=== PATIENT | male | born 1980 | race Caucasian/White ===

== ENCOUNTER 2016-09-09 02:52 | Emergency (ER) | payer SELFPAY ==
[2016-09-09 03:16] VITALS: BP 146/74
[2016-09-09] MEDS ORDERED: NYSTATIN 500000 UNIT/5 ML UDCUP PO ONE (04:04)
--- NOTE | 2016-09-09 04:10 | ER Document Report ---
ED General - General Chief Complaint: Mouth Problem Stated Complaint: SWOLLEN THROAT,BLACK TONGUE FOR 2 MONTHS Notes: Patient is a 35-year-old male presents with complaints of noticing some coating base of his tongue. He still has been there for several months. He does smoke. He does not have teeth. He says that since having seat removed he's had increased postnasal drip. He has been seen her several times in the past due to tonsillar stones. He says that currently he does not have any large tonsillar stones but that they are intermittent. He says his recent start on Minipress did not nurse. Since starting it he's felt like his throat felt a little swollen. He is told by his doctors stop this medication. He stopped yesterday. Currently does not feel as if his throat is very swollen. He said no fevers. No difficulty breathing. He also asks me to look at a rash that he' s had in his pelvic region for 13 years. He's been told in the past it could be yeast related. He does shave his pubic hair. TRAVEL OUTSIDE OF THE [place] IN LAST 30 DAYS: No - Related Data Allergies/Adverse Reactions: Penicillins Allergy (Verified 09/09/16 03:07) turkey Allergy (Verified 09/09/16 03:07) Home Medications: Current Home Medications Lurasidone HCl [Latuda] 1 tab PO DAILY 09/09/16 [History] Prazosin HCl [Prazosin HCl] 1 tab PO DAILY 09/09/16 [History] Past Medical History - Social History Smoking Status: Current Every Day Smoker Cigarette use (# per day): Yes - 20 Chew tobacco use (# tins/day): No Frequency of alcohol use: Rare Drug Abuse: None Family History: Reviewed & Not Pertinent Renal/ Medical History: Denies: Hx Peritoneal Dialysis Past Surgical History: Reports: Hx Oral Surgery - Immunizations Hx Diphtheria, Pertussis, Tetanus Vaccination: Yes Review of Systems - Review of Systems Notes: My Normal Review Basic REVIEW OF SYSTEMS: CONSTITUTIONAL : Denies fever, chills, or sweats. Denies recent illness. EENT: Coating on tongue. RESPIRATORY: Denies cough, cold, or chest congestion. Denies shortness of breath, difficulty breathing, or wheezing. GASTROINTESTINAL: Denies abdominal pain. Denies nausea, vomiting, or diarrhea. Denies constipation. Last BM: GENITOURINARY: Denies difficulty urinating, painful urination, burning, frequency, or blood in urine.: MUSCULOSKELETAL: Denies neck or back pain or joint pain or swelling. SKIN: Rash and pelvic area. NEUROLOGICAL: Denies altered mental status or loss of consciousness. Denies headache. Denies weakness or paralysis or loss of use of either side. Denies problems with gait or speech. Denies sensory or motor loss. ALL OTHER SYSTEMS REVIEWED AND NEGATIVE. Physical Exam - Vital signs Vitals: Temp Pulse Resp BP Pulse Ox 97.9 F 82 18 146/74 H 96 09/09/16 03:13 09/09/16 03:13 09/09/16 03:13 09/09/16 03:13 09/09/16 03:13 - Notes Notes: General Appearance: Well nourished, alert, cooperative, no acute distress, no obvious discomfort. Well-appearing. Vitals: reviewed, See vital signs table. Head: no swelling or tenderness to the head Eyes: PERRL, EOMI, Conjuctiva clear Mouth: No decreasd moisture. Patient does have some thick coating on the posterior aspect of his tongue. It is brownish in color. It is not black appearing. There is no associated bleeding. No plaques or ulcers. No associated redness or swelling. Throat: No tonsillar inflammation, No airway obstruction, No lymphadenopathy Genital: Patient has several scheduled areas of inflamed hair follicles in the pelvic region consistent with folliculitis. He does shave his pubic hair and has some obvious irritation from that. This no signs of infection. No abnormal drainage. No fluctuance. Skin: warm, dry, appropriate color, no rash Neuro: speech clear, oriented x 3, normal affect, responds appropriately to questions. Course - Vital Signs Vital signs: Temp Pulse Resp BP Pulse Ox 97.9 F 82 18 146/74 H 96 09/09/16 03:32 09/09/16 03:32 09/09/16 03:32 09/09/16 03:32 09/09/16 03:32 - Transfer of Care Notes: 09/09/16 04:18 Exact cause of the cutting back the patient's tongue is not 100% clear. Looks consistent with that of typical coatings seems someone who smokes or your basis. Episode drip and mucus can also be protruding through it. The remainder of his tongue is clear. His tonsils are not inflamed. He has a chronic smoker and has had multiple pharyngeal symptoms problems over last year. I once again strongly informed him to follow-up with your nose and throat clinic so that they can take a close look at him to make sure that there is nothing concerning for cancer that would need to be biopsied. I currently do not see anything concerning; however, informed him I'm not expert in this area and that is why he needs to be seen by the ENT physician. Patient otherwise clinically looks very well. I did strongly encourage him to quit smoking. We'll give him a trial of nystatin to see if this helps improve the coating on this time at all. I informed him that it does not look classic for a fungal infection; however, we would try this to see if it does help. Patient Nicholas return to ER if he has swelling of the throat or mouth, fevers, or feels the symptoms are worsening. Patient agrees with plan will be discharged home. Dictation of this chart was performed using voice recognition software; therefore, there may be some unintended grammatical errors. Discharge - Discharge Clinical Impression: Tongue coating, Folliculitis Condition: Good Disposition: HOME, SELF-CARE Additional Instructions: It is very important you stop smoking. Is also very important you follow up with your nose and throat clinic for evaluation of your pharynx and tongue. With a history of smoking it is important that they are able to evaluate you and possibly biopsy if they finding anything concerning for cancer. Please return to ER if you have fevers, worsening of her symptoms, difficulty breathing or swallowing, or have further concerns. Prescriptions: Nystatin [Mycostatin 500,000 Unit/5 ml Susp Udcup] 500,000 unit PO TID #100 udc Forms: Return to Work Referrals: MAGALIS BRITO MD [DEBI COATES] - Follow up in 3-5 days
== END 2016-09-09 04:13 | disposition home or self-care (01) ==
LOC: ER 02:52
DX: K14.9 Disease of tongue, unspecified (principal); L73.9 Follicular disorder, unspecified; K08.89 Other specified disorders of teeth and supporting structures; F17.210 Nicotine dependence, cigarettes, uncomplicated; Z79.899 Other long term (current) drug therapy
CPT/HCPCS: 99282

== ENCOUNTER 2017-01-10 16:42 | Emergency (ER) | payer OTHER ==
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
--- NOTE | 2017-01-10 19:37 | RADIOLOGY REPORT (SQ) ---
EXAM DESCRIPTION: CHEST PA/LAT COMPLETED DATE/TIME: 01/10/2017 7:23 pm REASON FOR STUDY: hurts to breath, shortness of breath COMPARISON: 04/25/2016 EXAM PARAMETERS: NUMBER OF VIEWS: two views TECHNIQUE: Digital Frontal and Lateral radiographic views of the chest acquired. RADIATION DOSE: NA LIMITATIONS: none FINDINGS: LUNGS AND PLEURA: No acute opacities, masses or pneumothorax. No pleural effusion. MEDIASTINUM AND HILAR STRUCTURES: No masses or contour abnormalities. HEART AND VASCULAR STRUCTURES: Heart normal size. No evidence for failure. BONES: No acute findings. HARDWARE: None in the chest. OTHER: No other significant finding. IMPRESSION: No acute findings. TECHNICAL DOCUMENTATION: JOB ID: [id number] [employer]- All Rights Reserved
[2017-01-10 20:32] VITALS: BP 131/89
== END 2017-01-10 20:30 | disposition home or self-care (01) ==
LOC: ER 16:42
DX: S16.1XXA Strain of muscle, fascia and tendon at neck level, initial encounter (principal); S39.012A Strain of muscle, fascia and tendon of lower back, initial encounter; R07.89 Other chest pain; V89.2XXA Person injured in unspecified motor-vehicle accident, traffic, initial encounter; Z88.0 Allergy status to penicillin
CPT/HCPCS: 71020; 99283

== ENCOUNTER 2017-03-06 22:16 | Emergency (ER) | payer OTHER ==
[2017-03-06] MEDS ORDERED: KETOROLAC TROMETHAMINE INJ/PF 30 MG/1 ML SDV IV ONE (23:39)
--- NOTE | 2017-03-06 23:41 | ER Document Report ---
ED General - General Chief Complaint: Abdominal Pain Stated Complaint: ABDOMINAL PAIN Time Seen by Provider: 03/06/17 23:31 Notes: Patient is a 36-year-old male presents with complaint of pain over his right lower ribs and right side of his abdomen that radiates into his testicles. He says that she had pain off and on in his left testicle for about a month. Says pain is worse when he ejaculates. Patient says the pain in his right ribs and right side is new today. He said it started just a few hours before he came to the ER. No dysuria. No blood in his urine. No fevers. Some nausea. No vomiting. No diarrhea. He has never had this pain before. No history of abdominal surgeries. No history of kidney stones. TRAVEL OUTSIDE OF THE [place] IN LAST 30 DAYS: No - Related Data Allergies/Adverse Reactions: Penicillins Allergy (Verified 09/09/16 03:07) turkey Allergy (Verified 09/09/16 03:07) Past Medical History - Social History Smoking Status: Current Every Day Smoker Chew tobacco use (# tins/day): No Frequency of alcohol use: None Drug Abuse: None Family History: Reviewed & Not Pertinent Pulmonary Medical History: Reports: Hx Asthma - childhood Renal/ Medical History: Denies: Hx Peritoneal Dialysis Past Surgical History: Reports: Hx Oral Surgery - Immunizations Hx Diphtheria, Pertussis, Tetanus Vaccination: Yes Review of Systems - Review of Systems Notes: My Normal Review Basic REVIEW OF SYSTEMS: CONSTITUTIONAL : Denies fever, chills, or sweats. Denies recent illness. EENT: Denies eye, ear, throat, or mouth pain or symptoms. Denies nasal or sinus congestion. RESPIRATORY: Denies cough, cold, or chest congestion. Denies shortness of breath, difficulty breathing, or wheezing. GASTROINTESTINAL: Right-sided abdominal pain. Denies nausea, vomiting, or diarrhea. Denies constipation. Last BM: GENITOURINARY: Denies difficulty urinating, painful urination, burning, frequency, or blood in urine. MUSCULOSKELETAL: Right Back pain SKIN: Denies rash or skin lesions. NEUROLOGICAL: Denies altered mental status or loss of consciousness. Denies headache. Denies weakness or paralysis or loss of use of either side. Denies problems with gait or speech. Denies sensory or motor loss. ALL OTHER SYSTEMS REVIEWED AND NEGATIVE. Physical Exam - Vital signs Vitals: Temp Pulse Resp BP Pulse Ox 98.2 F 80 22 H 133/86 H 94 03/06/17 22:58 03/06/17 22:58 03/06/17 22:58 03/06/17 22:58 03/06/17 22:58 - Notes Notes: General Appearance: Well nourished, alert, cooperative, no acute distress, mild obvious discomfort. well-appearing Vitals: reviewed, See vital signs table. Head: no swelling or tenderness to the head Eyes: PERRL, EOMI, Conjuctiva clear Mouth: No decreasd moisture Throat: No tonsillar inflammation, No airway obstruction, No lymphadenopathy Lungs: No wheezing, No rales, No rhonci, No accessory muscle use, good air exchange bilaterally. Heart: Normal rate, Regular rythm, No murmur, no rub Abdomen: Normal BS, soft, No rigidity, mild right-sided abdominal tenderness in the right upper quadrant and right lower quadrant. Mild pain in the suprapubic region. Minimal pain on left side of the abdomen. Abdominal tenderness, No guarding, no rebound, no abdominal masses, Genital. No significant pain to palpation of the testicles. No redness or swelling. Extremities: strength 5/5 in all extremities, good pulses in all extremities, no swelling or tenderness in the extremities, no edema. Skin: warm, dry, appropriate color, no rash Neuro: speech clear, oriented x 3, normal affect, responds appropriately to questions. Course - Re-evaluation Re-evalutation: 03/07/17 06:13 Patient has a kidney stone. Patient will be discharged home. His pain is well- controlled with Toradol. Patient has no fevers. He has no signs of infection. He looks well. I encouraged him to follow-up with urologist. I encouraged him return to ER if he has fevers, vomiting, or intractable pain. Patient agrees with plan and will be discharged home. Dictation of this chart was performed using voice recognition software; therefore, there may be some unintended grammatical errors. - Vital Signs Vital signs: Temp Pulse Resp BP Pulse Ox 97.7 F 72 16 132/91 H 97 03/07/17 03:41 03/07/17 03:41 03/07/17 03:41 03/07/17 03:41 03/07/17 03:41 - Laboratory Result Diagrams: 03/06/17 23:31 03/06/17 23:31 Laboratory results interpreted by me: 03/06/17 03/06/17 03/06/17 23:20 23:31 23:31 WBC 10.8 H Seg Neutrophils % 85.2 H Lymphocytes % 9.0 L Absolute Neutrophils 9.2 H Glucose 125 H ALT 78 H Urine Protein 30 H Urine Blood LARGE H Discharge - Discharge Clinical Impression: Kidney stone on right side Condition: Good Disposition: HOME, SELF-CARE Additional Instructions: KIDNEY STONE: You are passing or have passed a kidney stone. These stones are usually due to increased calcium or uric acid concentrations in your urine. Stones within the kidney itself are not painful. The pain occurs as the stone leaves the kidney to pass down the long tube, called the ureter, leading to the bladder. If the stone is small, it will usually pass by itself. Most patients can pass the stone at home. You will usually receive medications for pain, nausea or vomiting, and sometimes a medication to assist in passing the kidney stone. However, if the pain is very severe or if vomiting prevents you from taking oral pain medications, you may need to return for further treatment. Drink three or four quarts of fluids per day. You will be given pain medication (if needed) and urine strainers. Strain all your urine to see if the stone passes. If your doctor has asked you to bring the stone in for analysis, return with the stone once it has passed. Return if pain or vomiting become severe, if you develop a high fever, if you are unable to pass your urine, or if other unusual symptoms occur. TORADOL INJECTION: You have been given an injection of ketorolac tromethamine (Toradol). This is an excellent, safe drug for pain control. It also has potent antiinflammatory action. You should have significant pain relief within about one hour. Toradol is not addicting and is non-sedating. It does not interfere with driving or work. Call or return if you develop itching, hives, shortness of breath, or rash. ANTINAUSEA MEDICATION: You have been given a medication to suppress nausea and vomiting. This type of medication can be given as a shot, pill, or suppository. It will usually last for many hours. Pills and shots usually last six to eight hours, suppositories last about 12 hours. For the typical illness, only one or two doses of the medication may be necessary. Mild lightheadedness may occur. This type of medicine can cause drowsiness. Do not drive or operate dangerous machinery while under its influence. Do not mix with alcohol. See your doctor at once if you have muscle spasms or tightness, or uncontrollable motions (particularly of the neck, mouth, or jaw). Persistent vomiting or severe lightheadedness should also be evaluated by the physician. FOLLOW-UP CARE: If you have been referred to a physician for follow-up care, call the physician s office for an appointment as you were instructed or within the next two days. If you experience worsening or a significant change in your symptoms, notify the physician immediately or return to the Emergency Department at any time for re-evaluation. Please return to the ER immediately if you develop intractable vomiting, fevers , intractable pain, or feel unwell. Please call the urology office this am to make a follow up appointment. Prescriptions: Ketorolac Tromethamine [Toradol 10 mg Tablet] 10 mg PO Q6HP PRN #14 tablet PRN Reason: flank pain Ondansetron [Zofran Odt 4 mg Tablet] 1 tab PO Q4H PRN #15 tab.rapdis PRN Reason: For Nausea/Vomiting Referrals: CHARO PEREZ MD [NO LOCAL MD] - Follow up in 3-5 days [facility] [Provider Group] - Follow up in 3-5 days
[2017-03-06 23:44] LABS: APPEARANCE,URINE SLIGHTLY-CLOUDY; BILIRUBIN,URINE NEGATIVE (NEGATIVE); GLUCOSE, URINE NEGATIVE (NEGATIVE); KETONES,URINE NEGATIVE (NEGATIVE); LEUKOCYTE ESTERASE,URINE NEGATIVE (NEGATIVE); NITRITE,URINE NEGATIVE (NEGATIVE); PROTEIN,URINE 30 mg/dL (NEGATIVE); URINE SPECIFIC GRAVITY 1.028; UROBILINOGEN,URINE NEGATIVE mg/dL (<2.0)
[2017-03-06 23:56] LABS: ABSOLUTE EOSINOPHILS # (AUTO) 0.1 10^3/uL (0.0-0.6); ABSOLUTE MONOCYTES (AUTO) 0.5 10^3/uL (0.1-1.4); ABSOLUTE NEUT (AUTO) 9.2 10^3/uL (1.7-8.2); BASOPHILS % (AUTO) 0.2 % (0-2); EOSINOPHILS % (AUTO) 0.6 % (0-6); HEMATOCRIT 44.6 % (37.9-51.0); HGB HCT DIFFERENCE 3.4; MEAN CORPUSCULAR HEMOGLOBIN 30.5 pg (27.0-33.4); MEAN CORPUSCULAR VOLUME 85 fl (80-97); RED BLOOD COUNT 5.25 10^6/uL (4.35-5.55); RED CELL DISTRIBUTION WIDTH 12.8 % (11.5-14.0); SEGMENTED NEUTROPHILS % (AUTO) 85.2 % (42-78); WHITE BLOOD COUNT 10.8 10^3/uL (4.0-10.5)
[2017-03-07 00:01] LABS: ALANINE AMINOTRANSFERASE 78 U/L (21-72); ALBUMIN 4.5 g/dL (3.5-5.0); ALKALINE PHOSPHATASE 91 U/L (38-126); ANION GAP 13 (5-19); ASPARTATE AMINO TRANSFERASE 42 U/L (17-59); BILIRUBIN,DIRECT 0.4 mg/dL (0.0-0.4); BILIRUBIN,TOTAL 0.6 mg/dL (0.2-1.3); BLOOD UREA NITROGEN 14 mg/dL (7-20); CARBON DIOXIDE 25 mmol/L (22-30); CHLORIDE 104 mmol/L (98-107); GLUCOSE 125 mg/dL (75-110); LIPASE 59.1 U/L (23-300); POTASSIUM 4.2 mmol/L (3.6-5.0); SODIUM 141.6 mmol/L (137-145); TOTAL PROTEIN 7.6 g/dL (6.3-8.2)
--- NOTE | 2017-03-07 01:47 | RADIOLOGY REPORT (SQ) ---
EXAM DESCRIPTION: U/S SCROTUM W/DOPPLER COMPLETED DATE/TIME: 03/07/2017 12:49 am REASON FOR STUDY: left testicular pain COMPARISON: None. TECHNIQUE: Static and realtime ramos scale imaging of the scrotum and testes. Selected color Doppler and spectral images recorded to document blood flow. LIMITATIONS: None. FINDINGS: RIGHT: TESTICLE: Normal size. Normal echotexture. Normal blood flow. No mass. 3.8 cm. EPIDIDYMIS: 0.5 cm epididymal cyst. HYDROCELE OR VARICOCELE: Minimal. HERNIA OR EXTRA-TESTICULAR MASS: No. OTHER: No other significant finding. LEFT: TESTICLE: Normal size. Normal echotexture. Normal blood flow. No mass. 3.5 cm. EPIDIDYMIS: 0.2 cm epididymal cyst/ spermatocele corresponding with near or at an area of indicated s ymptomatology. HYDROCELE OR VARICOCELE: Small. HERNIA OR EXTRA-TESTICULAR MASS: No. OTHER: No other significant finding. IMPRESSION: Small left hydrocele. NO EVIDENCE OF TESTICULAR MASS OR TORSION. Small bilateral epidi dymal cyst/spermatocele. TECHNICAL DOCUMENTATION: JOB ID: [id number] [employer]- All Rights Reserved
--- NOTE | 2017-03-07 02:31 | RADIOLOGY REPORT (SQ) ---
EXAM DESCRIPTION: CT LTD RENAL STONE PROTOCOL ON COMPLETED DATE/TIME: 03/07/2017 2:03 am REASON FOR STUDY: right flank pain COMPARISON: None. TECHNIQUE: CT scan of the abdomen and pelvis performed without intravenous or oral contrast. Images reviewed with lung, soft tissue, and bone windows. Reconstructed coronal and sagittal MPR images revi ewed. All images stored on PACS. All CT scanners at this facility use dose modulation, iterative reconstruction, and/or weight based d osing when appropriate to reduce radiation dose to as low as reasonably achievable (ALARA). [facility]: Dose Right [facility]: CareDose [facility]: Dose Right [facility]: Teradose 4D [facility]: Smart SourceNinja RADIATION DOSE: Up-to-date CT equipment and radiation dose reduction techniques were employed. CTDIv ol: 10.4 mGy. DLP: 572 mGy-cm.mGy. LIMITATIONS: None. FINDINGS: LOWER CHEST: No significant findings. No nodules or infiltrates. NON-CONTRASTED LIVER, SPLEEN, ADRENALS: Evaluation limited by lack of IV contrast. No identified sign ificant masses. PANCREAS: No masses. No peripancreatic inflammatory changes. GALLBLADDER: No identified stones by CT criteria. No inflammatory changes to suggest cholecystitis. RIGHT KIDNEY AND URETER: 0.4 cm right mid ureteral stone with mild hydronephrosis and mild hydrourete r. LEFT KIDNEY AND URETER: No suspicious masses. Assessment limited by lack of IV contrast. No signifi cant calcifications. No hydronephrosis or hydroureter. AORTA AND RETROPERITONEUM: No aneurysm. No retroperitoneal masses or adenopathy. BOWEL AND PERITONEAL CAVITY: No obvious masses or inflammatory changes. No free fluid. APPENDIX: Normal. PELVIS, BLADDER, AND ABDOMINAL WALL:No abnormal masses. No free fluid. Bladder normal. BONES: No significant findings. With minimal T12 anterior vertebral wedging. OTHER: No other significant finding. IMPRESSION: 0.4 cm right mid ureteral stone with low-grade obstruction. TECHNICAL DOCUMENTATION: JOB ID: [id number] Quality ID # [id number]: Final reports with documentation of one or more dose reduction techniques (e.g., Au tomated exposure control, adjustment of the mA and/or kV according to patient size, use of iterative reconstruction technique) 2010 [employer]- All Rights Reserved
[2017-03-07 03:42] VITALS: BP 132/91
== END 2017-03-07 03:50 | disposition home or self-care (01) ==
LOC: ER 22:16
DX: N13.2 Hydronephrosis with renal and ureteral calculous obstruction (principal); N50.812 Left testicular pain; R07.81 Pleurodynia; R11.0 Nausea; F17.200 Nicotine dependence, unspecified, uncomplicated; Z88.0 Allergy status to penicillin; Z91.018 Allergy to other foods
CPT/HCPCS: 99284; 96374; 36415; 83690; 85025; 80053; 81001; 76870; 93976; 76380; J1885